=== PATIENT | female | born 1955 ===

== ENCOUNTER 2019-08-17 09:22 | Inpatient (IN) ==
[2019-08-17] MEDS ORDERED: Naloxone 0.4 MG/ML INJ IVP PRN (10:20)
[2019-08-17] MEDS ORDERED: Ondansetron 4 MG/2 ML VIAL IVP PRN (10:20)
[2019-08-17] MEDS ORDERED: *HR* Heparin 5,000 UNIT/ML VIAL IVP ONE ×3 (10:23→14:20)
[2019-08-17] MEDS ORDERED: *HR* Heparin 5,000 UNIT/ML VIAL IVP PRN ×4 (10:23→11:06)
[2019-08-17] MEDS ORDERED: Heparin 25,000 UNIT/250 ML D5W 25,000 UNIT/250 ML IV.SOLN IVC SCH ×2 (10:30→11:15)
[2019-08-17 10:37] LABS: Basophils % 0.3 %; Eosinophils % 0.4 %; Hematocrit 42.6 % (35.3-44.9); Hemoglobin 13.2 g/dL (11.5-15.4); Immature Granulocytes % 0.5 % (0-4); Lymphocytes % 10.1 %; Mean Corpuscular Hemoglobin 28.6 pg (28.0-33.3); Mean Corpuscular Volume 92.4 fL (83.0-100.0); Mean Platelet Volume 10.4 fL (9.4-12.4); Monocytes # 0.6 K/mcL (0.0-1.3); Monocytes % 6.2 %; Platelet Count 240 K/mcL (140-400); Red Blood Count 4.61 M/mcL (3.82-4.97); Segmented Neutrophils % 82.5 %; White Blood Count 9.7 K/mcL (4.3-11.1)
[2019-08-17 10:42] LABS: INR 2.3; Prothrombin Time 26.4 Seconds (9.4-12.1)
[2019-08-17 10:44] LABS: Heparin anti-factor XA UFH < 0.04 IU/mL (0.30-0.70)
[2019-08-17 10:57] LABS: BUN/Creatinine Ratio 29 (6-26); Blood Urea Nitrogen 19 mg/dL (8-23); Calcium 8.7 mg/dL (8.6-10.3); Carbon Dioxide 32 mEq/L (23-29); Chloride 101 mEq/L (98-107); Glucose 113 mg/dL (70-105); Osmolality,Calculated 287 (280-300); Potassium 3.6 mEq/L (3.5-5.1); Sodium 137 mEq/L (136-145); eGFR For African Americans > 60 (> 60); eGFR For Non-African Americans > 60 (> 60)
[2019-08-17] MEDS: *HR* OxyCODONE/APAP 5/325 TABLET PO PRN ×2 (12:57→19:07)
[2019-08-17] MEDS: Furosemide 20 MG TABLET PO SCH (16:51)
[2019-08-17 22:35] LABS: INR 2.4; Prothrombin Time 27.5 Seconds (9.4-12.1)
[2019-08-18] MEDS: *HR* OxyCODONE/APAP 5/325 TABLET PO PRN ×2 (05:43→12:10)
[2019-08-18 05:51] LABS: Basophils # 0.1 K/mcL (0.0-0.2); Basophils % 0.8 %; Eosinophils # 0.2 K/mcL (0.0-0.6); Eosinophils % 3.2 %; Hematocrit 35.3 % (35.3-44.9); Immature Granulocytes % 0.3 % (0-4); Lymphocytes # 1.1 K/mcL (0.6-4.6); Lymphocytes % 16.4 %; Mean Corpuscular HGB Conc 31.2 g/dL (31.6-35.5); Mean Corpuscular Hemoglobin 29.1 pg (28.0-33.3); Mean Corpuscular Volume 93.4 fL (83.0-100.0); Mean Platelet Volume 10.7 fL (9.4-12.4); Monocytes # 0.7 K/mcL (0.0-1.3); Monocytes % 10.2 %; Neutrophils # 4.6 K/mcL (1.6-8.9); Platelet Count 176 K/mcL (140-400); Red Blood Count 3.78 M/mcL (3.82-4.97); Red Cell Distribution Width 14.1 % (11.5-14.5); Segmented Neutrophils % 69.1 %; White Blood Count 6.6 K/mcL (4.3-11.1)
[2019-08-18 05:59] LABS: INR 2.3; Prothrombin Time 26.5 Seconds (9.4-12.1)
[2019-08-18 06:03] LABS: Activated Partial Thrombo Time 38.4 Seconds (26.0-36.0)
[2019-08-18 06:18] LABS: BUN/Creatinine Ratio 27 (6-26); Blood Urea Nitrogen 15 mg/dL (8-23); Calcium 8.2 mg/dL (8.6-10.3); Carbon Dioxide 29 mEq/L (23-29); Chloride 102 mEq/L (98-107); Glucose 107 mg/dL (70-105); Osmolality,Calculated 285 (280-300); Potassium 3.5 mEq/L (3.5-5.1); Sodium 137 mEq/L (136-145); eGFR For African Americans > 60 (> 60); eGFR For Non-African Americans > 60 (> 60)
[2019-08-18] MEDS ORDERED: *HR* Phytonadione 10 MG/ML AMPUL SQ ONE (06:53)
[2019-08-18] MEDS: Furosemide 20 MG TABLET PO SCH (08:12)
[2019-08-18] MEDS ORDERED: Aspirin 81 MG TAB.CHEW PO SCH (09:00)
[2019-08-18] MEDS ORDERED: NON-FORMULARY MEDICATION 1 EACH EACH (Hydrochlorothiazide [Hydrochlorothiazide] 12.5 MG) PO SCH (09:00)
[2019-08-18 12:12] LABS: Hematocrit 36.9 % (35.3-44.9); Hemoglobin 11.6 g/dL (11.5-15.4)
[2019-08-18 12:20] LABS: INR 2.2; Prothrombin Time 25.3 Seconds (9.4-12.1)
[2019-08-18] MEDS ORDERED: 0.9 % Sodium Chloride 250 ML IVC SCH ×2 (13:45→19:51)
[2019-08-18 14:21] LABS: INR 2.2
[2019-08-18] MEDS ORDERED: Tranexamic Acid 1,000 MG/10 ML VIAL ONE (16:05)
[2019-08-18] MEDS ORDERED: Ondansetron 4 MG/2 ML VIAL ONE ×2 (16:05→20:24)
[2019-08-18] MEDS ORDERED: Dexamethasone 4 MG/ML VIAL ONE (16:05)
[2019-08-18] MEDS ORDERED: *HR* Propofol 200 MG/20 ML VIAL IVP ONE (16:05)
[2019-08-18] MEDS ORDERED: Lidocaine -MPF 2% 2 ML VIAL ONE (16:05)
[2019-08-18] MEDS ORDERED: *HR* Midazolam HCl 2 MG/2 ML VIAL ONE (16:05)
[2019-08-18] MEDS ORDERED: *HR* FentaNYL (PF) 100 MCG/2 ML VIAL ONE (16:05)
[2019-08-18] MEDS ORDERED: *HR* Succinylcholine 200 MG/10 ML VIAL IVP ONE (16:05)
[2019-08-18] MEDS ORDERED: Ethanol\\Acetic Acid\\Na Ace\\Ben 1,000 ML IRRIG.SOLN IR ONE (17:17)
[2019-08-18] MEDS ORDERED: *HR* HYDROmorphone PF 0.5 MG/0.5 ML SYRINGE IVP PRN ×2 (17:27→19:51)
[2019-08-18] MEDS ORDERED: Ondansetron 4 MG/2 ML VIAL IVP ONE ×2 (17:27→19:51)
[2019-08-18] MEDS ORDERED: *HR* Meperidine 25 MG/ML SYRINGE IVP PRN ×2 (17:27→19:51)
[2019-08-18] MEDS ORDERED: *HR* Promethazine 25 MG/ML VIAL IVP PRN ×2 (17:27→19:51)
[2019-08-18] MEDS ORDERED: Clindamycin 900 MG/50 ML 900 MG/50 ML IV.SOLN IVPB ONE (17:38)
[2019-08-18] MEDS ORDERED: *HR* PHENYLEPHRINE 1,000 MCG/10 ML SYRINGE IVP ONE (17:43)
[2019-08-18] MEDS ORDERED: *HR* HYDROMORPHONE 2 MG/ML VIAL ONE (17:43)
[2019-08-18] MEDS ORDERED: *HR* Warfarin 2 MG TABLET PO SCH ×2 (19:00→19:51)
[2019-08-18 19:47] LABS: Hematocrit 35.5 % (35.3-44.9)
[2019-08-18] MEDS ORDERED: Naloxone 0.4 MG/ML INJ IVP PRN ×2 (19:51)
[2019-08-18] MEDS ORDERED: Ringers Solution, Lactated 1,000 ML IVC SCH (19:51)
[2019-08-18] MEDS ORDERED: Sennosides 8.6 MG TABLET PO PRN (19:51)
[2019-08-18] MEDS ORDERED: Ondansetron 4 MG/2 ML VIAL IVP PRN ×2 (19:51→20:45)
[2019-08-18] MEDS ORDERED: *HR* OxyCODONE/APAP 5/325 TABLET PO PRN ×2 (19:51→21:05)
[2019-08-18] MEDS ORDERED: *HR* Heparin 5,000 UNIT/ML VIAL IVP PRN (19:51)
[2019-08-18] MEDS ORDERED: MOM Conc 10 ML UD.LIQ PO PRN (19:51)
[2019-08-18] MEDS ORDERED: Heparin 25,000 UNIT/250 ML D5W 25,000 UNIT/250 ML IV.SOLN IVC SCH (21:00)
[2019-08-18 21:04] LABS: INR 1.7; Prothrombin Time 19.5 Seconds (9.4-12.1)
[2019-08-18] MEDS: Clindamycin 900 MG/50 ML 900 MG/50 ML IV.SOLN IVPB SCH (23:11)
[2019-08-19] MEDS ORDERED: *HR* Heparin 5,000 UNIT/ML VIAL IVP PRN
[2019-08-19] MEDS: *HR* OxyCODONE Immed Rel 5 MG TABLET PO PRN ×2 (03:40→09:55)
[2019-08-19 05:47] LABS: Basophils % 0.2 %; Hematocrit 31.6 % (35.3-44.9); Hemoglobin 9.7 g/dL (11.5-15.4); Immature Granulocytes % 0.5 % (0-4); Lymphocytes # 0.5 K/mcL (0.6-4.6); Lymphocytes % 4.9 %; Mean Corpuscular HGB Conc 30.7 g/dL (31.6-35.5); Mean Corpuscular Hemoglobin 29.2 pg (28.0-33.3); Mean Corpuscular Volume 95.2 fL (83.0-100.0); Monocytes # 0.6 K/mcL (0.0-1.3); Monocytes % 6.7 %; Platelet Count 169 K/mcL (140-400); Red Blood Count 3.32 M/mcL (3.82-4.97); Red Cell Distribution Width 13.9 % (11.5-14.5); Segmented Neutrophils % 87.7 %; White Blood Count 9.1 K/mcL (4.3-11.1)
[2019-08-19 05:53] LABS: Heparin anti-factor XA UFH 0.65 IU/mL (0.30-0.70)
[2019-08-19 05:54] LABS: INR 1.9
[2019-08-19 06:07] LABS: BUN/Creatinine Ratio 23 (6-26); Blood Urea Nitrogen 12 mg/dL (8-23); Carbon Dioxide 31 mEq/L (23-29); Chloride 101 mEq/L (98-107); Glucose 144 mg/dL (70-105); Magnesium 2.1 mg/dL (1.6-2.6); Osmolality,Calculated 286 (280-300); Phosphorous 3.2 mg/dL (2.7-4.5); Potassium 4.1 mEq/L (3.5-5.1); Sodium 137 mEq/L (136-145); eGFR For African Americans > 60 (> 60); eGFR For Non-African Americans > 60 (> 60)
[2019-08-19] MEDS ORDERED: Furosemide 20 MG TABLET PO SCH (09:00)
[2019-08-19] MEDS ORDERED: Aspirin 81 MG TAB.CHEW PO SCH (09:00)
[2019-08-19] MEDS ORDERED: Torsemide 20 MG TABLET PO SCH ×2 (09:00)
[2019-08-19] MEDS: Clindamycin 900 MG/50 ML 900 MG/50 ML IV.SOLN IVPB SCH (09:51)
[2019-08-19 10:05] VITALS: BP 114/73
[2019-08-19] MEDS ORDERED: *HR* Warfarin 5 MG TABLET PO SCH (18:00)
[2019-08-19] MEDS ORDERED: *HR* Warfarin 2 MG TABLET PO SCH ×2 (18:00→18:55)
[2019-08-19] MEDS ORDERED: *HR* Warfarin 4 MG TABLET PO ONE (18:00)
[2019-08-19] MEDS ORDERED: Warfarin perPT PO PRN (18:00)
== END 2019-08-19 12:17 | disposition home or self-care (01) | DRG 493 ==
LOC: 3NENU
PROVIDERS: ADMIT Family Medicine; ATTEND Family Medicine